=== PATIENT | female | born 1960 | race Two or more races ===

== ENCOUNTER 2025-06-22 19:36 | Emergency (ER) | payer OTHER ==
[~2025-06-22] VITALS: Ht 170.2 cm; Wt 91.0 kg
[2025-06-22 19:39] VITALS: BP 185/75; PULSE 62; RESP 20; TEMP 97.7; O2SAT 98
--- NOTE | 2025-06-22 21:07 | DVH ---
Exam: CT CT AB PEL WO CON-NO ORAL OR IV History: abd bloating/pain Comparison Study: None TECHNIQUE: Multidetector CT of the abdomen was performed from lung bases to pubic symphysis. Imaging was performed without IV contrast. Axial, coronal and sagittal multiplanar reformats were obtained fr om the axial data set by the technologist. Radiation Dose Information: CT Dose: CTDI volume is 15.44 mGy. Dose-length product is 842.51 mGy*cm FINDINGS: Evaluation of solid organs is limited due to lack of intravenous contrast use. Findings: Lung Bases: No acute or significant lung base finding. Normal heart size. No pleural or pericardial effusion. Liver: The liver is normal in size. No focal lesions. Gallbladder and Biliary Tree: Unremarkable Spleen: Unremarkable Pancreas: The pancreas is grossly normal in appearance. Adrenal Glands: Unremarkable Kidneys: Kidneys are grossly normal without calculi or hydronephrosis. A 2 mm calcification near the right ureteral vesicle junction series 2 image 92 - 93 Bladder: 2-3 mm calculus near the right ureterovesical junction noted on axial images and coronal shelley ges series 601 - image 67-68; series 602 image 63-64. Bowel: The stomach is grossly normal in appearance. Small bowel and colon are normal in caliber and d istribution. The appendix is not visualized; however, no secondary findings of acute appendicitis id entified. Ascites: Absent Lymphadenopathy: No mesenteric, retroperitoneal or periportal lymphadenopathy. Abdominal Wall and Mesentery: 2.2 fat containing umbilical hernia Vasculature: The visualized abdominal aorta is normal in size and caliber. Evaluation of abdominal a nd pelvic vessels is limited due to lack of intravenous contrast. Pelvic Organs: Unremarkable Musculoskeletal: No aggressive focal bony lesions, acute fractures or dislocation. Soft tissues: Unremarkable IMPRESSION: 1. 2-3 mm calculus near the right ureterovesical junction. Series 2 image 92 - 93; Coronal images se vern 601 - image 67-68; series 602 image 63-64. Radiation optimization: All CT scans at this facility use at least one of these dose optimization marcella hniques: automated exposure control mA and/or kV adjustment per patient size (includes targeted exam s where dose is matched to clinical indication) or iterative reconstruction.
--- NOTE | 2025-06-22 21:17 | ED.PDOC ---
GI ASSESSMENT HPI Comments 65-year-old female who presents to the ED for chief complaint abdominal pain. -Patient states he has been having abdominal pain for the past 4 days. -Patient states the pain is diffusely located describing the pain as ffullness,, radiating to the back with no associated exacerbating or relieving factors. -Patient states that she went to urgent care today and states she had an x-ray done which showed stool impaction and states she had blood work which showed elevated liver enzymes. -Patient states she has also been constipated but states she had a bowel movement yesterday -Patient with the ED noted to have blood pressure of 185/75 with otherwise stable vitals including heart rate 62 respiratory rate 20 7.7 F and O2 saturation of 98% on room air. Past medical history thyroid disease hyperlipidemia asthma arthritis of the liver disease Past surgical history tonsillectomy nasal polyp of foot surgery Medications unknown Allergies: Ciprofloxacin iodine penicillins Social history: Denies tobacco denies EtOH denies drug use HPI: Poor Historian. Past Medical History: Past Surgical History: REVIEW OF SYSTEMS: CONSTITUTIONAL: Denies acute: fever, diaphoresis, chills, generalized weakness. HEAD: Denies acute: headache, photophobia Eyes: Denies acute: Double vision, vision loss, eye pain, eye discharge. EARS: Denies acute: tinnitus, hearing loss, ear discharge, ear pain, THROAT: Denies acute: sore throat, swelling, difficulty swallowing , pain with swallowing, change in voice. NECK: Denies acute: neck pain, neck swelling, stiff neck. HEART: Denies acute : chest pain, palpitations, LUNGS: Denies acute: SOB, wheezing, cough, hemoptysis ABDOMEN: Denies acute: Nausea, Vomiting, diarrhea, melena , hematemesis, hematochezia SKIN: Denies acute: rash, redness, lesions, itchiness. EXTREMITIES: Denies acute: calf pain, numbness, tingling, weakness, denies pain in extremity. Denies acute: Low back pain. Neuro: Denies acute: focal neurological deficit, motor or sensory focal neurological deficit, tremors, seizure like activity, confusion, dizziness, change in mental status, loss of bowel or bladder function, cauda equina like symptoms. : Denies acute: dysuria, hematuria, flank pain, increase in urinary frequency. PSYCH: Denies acute: hallucination, suicidal ideation, homicidal ideation. FEMALE: Denies acute: abnormal vaginal bleeding, foul odor, unusual discharge. PHYSICAL EXAM: General: ----mild----acute distress, awake and alert. Head: normocephalic, atraumatic. Neck: supple, trachea is midline, no swelling. Throat: Normal phonation. Eyes:, no erythema, no purulent discharge, no proptosis, no icterus. Heart: regular rate, regular rhythm, no significant murmur appreciated. Lungs: no apparent respiratory distress, Able to speak in full sentences. No wheezing, no rhonchi, no crackles. No stridors Clear to auscultation bilaterally. Abdomen: Nonspecific generalized mild tender to palpation, non distended, soft, no guarding, no rebound, + bowel sounds. Neuro: Awake, Alert, oriented to name, self, situation, follows commands GCS=15. Speech is normal. Skin: no petechia, no purpura, no cyanosis, non-pale, not jaundice. Lower extremities: --no - Pitting edema no deformity, no focal swelling, no calf TTP. Makes eye contact. moves all four extremities. Face: no apparent facial droop. Ambulating in the ED independently. ED COURSE: DISCLAIMER: This medical document was created using an electronic medical record system with voice recognition software and computerized dictation system. Although this document has been carefully reviewed, there might still be some phonetic and typographical errors. Occasional wrong-word or "sound-alike" substitutions may have occurred due to the inherent limitations of voice recognition software. These areas are purely typographical due to imperfections of the software programs and do not reflect any compromise in the patient's medical care. Please read the chart carefully and recognize, using context, where these substitutions have occurred. Chief Complaint: Abdominal pain Time Seen by MD: 21:31 Reviewed Notes: Medications, Allergies Allergies: Coded Allergies: Ciprofloxacin (Verified Allergy, Unknown, 06/22/25) Coconut Flavoring Agent (non-screen (Verified Allergy, Unknown, 06/22/25) Iodine (Verified Allergy, Unknown, 06/22/25) Penicillins (Verified Allergy, Unknown, 06/22/25) Home Meds Active Scripts Docusate Sodium (Colace) 100 Mg Cap, 1 CAP PO BID, #30 CAP Prov:JOSE IYER PRESSING MACHINE OPERATOR 06/22/25 Information Source: Patient Mode of Arrival: Ambulatory Was a procedure done? Was a procedure done?: No GI differential Dx Differential Diagnosis: Other (DDX include Diverticulitis, colitis, gastroenteritis, acute abdomen, SBO, enteritis, constipation, volvulus, appendicitis, Gallbladder disease, choledocolithiasis, ascending cholangitis, pancreatitis, intraAbdominal mass/neoplasm, hepatitis, UTI, pylonephritis, kidney stone, aneurysm, dissection, Inflammatory bowel disease, gastroparesis, ischemic bowel, ) X-Ray, Labs, Meds, VS Vital Signs Date Time Temp Pulse Resp B/P (MAP) Pulse Ox O2 Delivery O2 Flow Rate FiO2 06/22/25 19:39 97.7 62 20 185/75 98 97.7 Lab Test 06/22/25 20:58 06/22/25 20:37 Range/Units White Blood Count 5.7 4.4-10.8 10^3/uL Red Blood Count 5.04 4.0-5.20 10^6/uL Hemoglobin 15.8 12.2-16.2 g/dL Hematocrit 46.4 H 36.0-46.0 % Mean Corpuscular Volume 92.1 80.0-100.0 fL Mean Corpuscular Hemoglobin 31.3 28.0-32.0 pg Mean Corpuscular Hemoglobin Concent 33.9 32.0-36.0 g/dL Red Cell Distribution Width 14.0 11.8-14.3 % Platelet Count 219 140-450 10^3/uL Mean Platelet Volume 8.2 6.9-10.8 fL Neutrophils (%) (Auto) 55.5 37.0-80.0 % Lymphocytes (%) (Auto) 32.6 10.0-50.0 % Monocytes (%) (Auto) 6.5 0.0-12.0 % Eosinophils (%) (Auto) 4.6 0.0-7.0 % Basophils (%) (Auto) 0.8 0.0-2.0 % Neutrophils # (Auto) 3.2 1.6-8.6 10 ^3/uL Lymphocytes # (Auto) 1.9 0.4-5.4 10 ^3/uL Monocytes # (Auto) 0.4 0-1.3 10 ^3/uL Eosinophils # (Auto) 0.3 0-0.8 10 ^3/uL Basophils # (Auto) 0 0-0.2 10 ^3/uL Nucleated Red Blood Cells 0.0 % Sodium Level 141 136-145 mmol/L Potassium Level 3.7 3.5-5.1 mmol/L Chloride Level 108 H 98-107 mmol/L Carbon Dioxide Level 20 20-31 mmol/L Anion Gap 13 5-15 Blood Urea Nitrogen 5 L 9-23 mg/dL Creatinine 0.75 0.550-1.02 mg/dL Glomerular Filtration Rate Calc 88 >90 mL/min BUN/Creatinine Ratio 6.7 L 10.0-20.0 Serum Glucose 83 74-106 mg/dL Lactic Acid Level 1.0 0.4-2.0 mmol/L Calcium Level 9.4 8.7-10.4 mg/dL Magnesium Level 2.0 1.6-2.6 mg/dL Total Bilirubin 1.7 H 0.2-1.0 mg/dL Aspartate Amino Transferase (AST) 119 H 13-40 U/L Alanine Aminotransferase (ALT) 288 H 7-40 U/L Alkaline Phosphatase 193 H 46-116 U/L B-Type Natriuretic Peptide 11.75 0-100 pg/mL Total Protein 7.3 5.7-8.2 g/dL Albumin 4.5 3.2-4.8 g/dL Lipase 52 12-53 U/L Urine Color Light-yellow Yellow Urine Clarity Clear Clear Urine pH 5.0 5.0-9.0 Urine Specific [place] 1.006 1.001-1.035 Urine Protein Negative Negative Urine Ketones Negative Negative Urine Blood Negative Negative /uL Urine Nitrite Negative Negative Urine Bilirubin Negative Negative Urine Urobilinogen Normal Negative mg/dL Urine Leukocyte Esterase Negative Negative /uL Urine RBC <1 0 - 4 /hpf Urine Microscopic WBC < 1 0-5 /HPF Urine Squamous Epithelial Cells None seen <5 /hpf Urine Bacteria None seen None Seen /hpf Urine Glucose Normal Normal mg/dL [facility] [id number] [facility] [address] Ph: [phone] DIAGNOSTIC IMAGING Diagnostic Imaging Report : [id number] Signed PATIENT: DONALD WEINER ACCT: [id number] UNIT: [id number] : 1960 LOC: ER ROOM / BED: / AGE / SEX: 65 / F ADM STATUS: REG ER SERVICE 14 ORDERING PHYSICIAN: DEEPTI TOLLIVER DO PROCEDURE(s): ABPL - CT AB PEL WO CON-NO ORAL OR IV REASON: abd bloating/pain ORDER NUMBER(s): [id number], ACCESSION NUMBER(s): [id number] Exam: CT CT AB PEL WO CON-NO ORAL OR IV History: abd bloating/pain Comparison Study: None TECHNIQUE: Multidetector CT of the abdomen was performed from lung bases to pubic symphysis. Imaging was performed without IV contrast. Axial, coronal and sagittal multiplanar reformats were obtained from the axial data set by the technologist. Radiation Dose Information: CT Dose: CTDI volume is 15.44 mGy. Dose-length product is 842.51 mGy*cm FINDINGS: Evaluation of solid organs is limited due to lack of intravenous contrast use. Findings: Lung Bases: No acute or significant lung base finding. Normal heart size. No pleural or pericardial effusion. Liver: The liver is normal in size. No focal lesions. Gallbladder and Biliary Tree: Unremarkable Spleen: Unremarkable Pancreas: The pancreas is grossly normal in appearance. Adrenal Glands: Unremarkable Kidneys: Kidneys are grossly normal without calculi or hydronephrosis. A 2 mm calcification near the right ureteral vesicle junction series 2 image 92 - 93 Bladder: 2-3 mm calculus near the right ureterovesical junction noted on axial images and coronal images series 601 - image 67-68; series 602 image 63-64. Bowel: The stomach is grossly normal in appearance. Small bowel and colon are normal in caliber and distribution. The appendix is not visualized; however, no secondary findings of acute appendicitis identified. Ascites: Absent Lymphadenopathy: No mesenteric, retroperitoneal or periportal lymphadenopathy. Abdominal Wall and Mesentery: 2.2 fat containing umbilical hernia Vasculature: The visualized abdominal aorta is normal in size and caliber. Evaluation of abdominal and pelvic vessels is limited due to lack of intravenous contrast. Pelvic Organs: Unremarkable Musculoskeletal: No aggressive focal bony lesions, acute fractures or dislocation. Soft tissues: Unremarkable IMPRESSION: 1. 2-3 mm calculus near the right ureterovesical junction. Series 2 image 92 - 93; Coronal images series 601 - image 67-68; series 602 image 63-64. Radiation optimization: All CT scans at this facility use at least one of these dose optimization techniques: automated exposure control mA and/or kV adjustmen t per patient size (includes targeted exams where dose is matched to clinical indication) or iterative reconstruction. ATED BY: MALIK WHITE Jr., DO DICTATED DATE/TIME: 06/22/252104 SIGNED BY: MALIK WHITE Jr., SIGNED DATE/TIME: 06/22/252104 CC: Time of 1ST Reevaluation: 00:00 (The case was discussed with the admitting team (HPI, physical exam, labs and diagnostic tests that were available at the time of disposition, ED course, treatment plan) on the phone. They agreed to evaluate the patient and make the appropriate disposition. They will assume care of this patient from this point forward. MARIA FERNANDA Ramon. ) Reevaluation 1ST: Unchanged Patient Education/Counseling: Diagnosis, Treatment Family Education/Counseling: No Family Present Comments MDM: patient presented with the above HPI.---abdominal pain---workup was initiated. patient was found with the above mentioned diagnosis. the following medications were ordered: please refer to order lists of meds and tests obtained by myself Dr. Tolliver. Patient ED course and VS have been stabilized. Patient has been reassessed in the ED and remained in a stable condition. Pertinent incidental findings were discussed with the patient and/or family. Patient/family voices understanding and is agreeable with plan. Patient has been observed in the ED adequate length of time to insure improvement/stability. Escalation of care considered: Consideration of escalation to observation or admission Patient was ADMITTED to the medicine team for further evaluation and treatment of their presentation. The medicine team evaluated the patient and I believe they are going to discharge the patient from the ER. Please see their consultation notes. All the reports of any imaging studies that were ordered by myself were reviewed by myself. SEPSIS Sepsis Screen Date sepsis recognized/suspect: Jun 22, 2025 Time Sepsis recognized/suspect: 1943 Recent Procedure: No On Antibiotic Therapy: No Respiratory Rate >20: No Heart Rate >90: No Temp<36 C (96.8 F) or >38.3 C: No SBP <90 or MAP <65 mmHG: No New Acute Mental Status Change: No Is the patient on CPAP, BIPAP,: No Physician Orders Ct Ab Pel Wo Con-No Oral Or Iv (06/22/25 20:15) Discharge (06/22/25 23:34) Vital Signs Date Time Temp Pulse Resp B/P (MAP) Pulse Ox O2 Delivery O2 Flow Rate FiO2 06/22/25 19:39 97.7 62 20 185/75 98 97.7 Laboratory Tests Test 06/22/25 20:58 Lactic Acid Level 1.0 mmol/L (0.4-2.0) White Blood Count 5.7 10^3/uL (4.4-10.8) Departure 1 Departure Time of Disposition: 21:33 Impression: Primary Impression: Kidney stone Additional Impressions: Abdominal pain Elevated LFTs Disposition: ADMITTED INPATIENT Admit to: Tele Condition: Guarded e-Prescriptions Docusate Sodium (Colace) 100 Mg Cap 1 CAP PO BID, #30 CAP Prov: JOSE IYER PRESSING MACHINE OPERATOR 06/22/25 Discharged With: Self Critical Care Note Critical Care Time?: No I personally scribed for DEEPTI TOLLIVER DO ([email or web address]) on 06/22/25 at 21:17. Electronically submitted by Corey Drake ([facility] I personally scribed for DEEPTI TOLLIVER DO ([email or web address]) on 06/22/25 at 21:31. Electronically submitted by Corey Drake ([facility] DEEPTI TOLLIVER DO Jun 22, 2025 21:17
[2025-06-22 21:25] LABS: Hematocrit 46.4 % (36.0-46.0); Hemoglobin 15.8 g/dL (12.2-16.2); Mean Corpuscular Hemoglobin 31.3 pg (28.0-32.0); Mean Corpuscular Volume 92.1 fL (80.0-100.0); Nucleated Red Blood Cells % 0.0 %
[2025-06-22 21:37] LABS: Albumin 4.5 g/dL (3.2-4.8); Anion Gap 13 (5-15); BUN/Creatinine Ratio 6.7 (10.0-20.0); Calcium 9.4 mg/dL (8.7-10.4); Glucose 83 mg/dL (74-106); Magnesium 2.0 mg/dL (1.6-2.6); Potassium 3.7 mmol/L (3.5-5.1); Sodium 141 mmol/L (136-145); Total Protein 7.3 g/dL (5.7-8.2)
[2025-06-22 21:41] LABS: Alanine Aminotransferase 288 U/L (7-40); Alkaline Phosphatase 193 U/L (46-116); Bilirubin, Total 1.7 mg/dL (0.2-1.0); Blood Urea Nitrogen 5 mg/dL (9-23); Carbon Dioxide 20 mmol/L (20-31); Chloride 108 mmol/L (98-107)
[2025-06-22 21:46] LABS: Urine Protein, UAD Negative (Negative)
--- NOTE | 2025-06-22 23:25 | DVHINCON2 ---
Date of service: Jun 22, [address] De Jesus Reason for Consultation Medical management History of Present Illness 65-year-old female with past medical history of thyroid disorder, stated IBS initially presented to [facility] urgent care with complaints of abdominal pain and bloating. During the initial workup at [facility] urgent care patient was found to have abnormal LFTs. Patient was then sent to the emergency department for further evaluation and CT imaging. During the emergency department evaluation CBC is unremarkable. BMP is unremarkable. AST 119, ALT 288, alk phos 193, total bilirubin 1.7. CT of the abdomen pelvis was completed with impression reading liver normal in size, no focal lesions. Gallbladder and biliary tree are unremarkable. Kidneys are grossly normal without calculus or hydronephrosis. Bladder presented 2-3 mm calculus near the ureterovesical junction. Small bowel and colon are normal in caliber and distribution. Patient endorses she is able to void normally and without pain. At this time patient states last bowel movement was small the previous day. Endorses tenderness along the left side of her abdomen. There are no complaints of fevers, chills, dizziness, shortness of breath, chest pain, nausea, vomiting, urinary retention, dysuria, hematemesis, hematochezia. Allergies: Coded Allergies: Ciprofloxacin (Verified Allergy, Unknown, 06/22/25) Coconut Flavoring Agent (non-screen (Verified Allergy, Unknown, 06/22/25) Iodine (Verified Allergy, Unknown, 06/22/25) Penicillins (Verified Allergy, Unknown, 06/22/25) Home Meds Active Scripts Docusate Sodium (Colace) 100 Mg Cap, 1 CAP PO BID, #30 CAP Prov:JOSE IYER NP 06/22/25 Review of Systems Ten systems reviewed and negative except as per HPI Vital Signs Vital Signs Date Time Temp Pulse Resp B/P (MAP) Pulse Ox O2 Delivery O2 Flow Rate FiO2 06/22/25 19:39 97.7 62 20 185/75 98 97.7 Physical Exam GENERAL: Patient appearing stated age, in no acute distress. HEENT: Pupils equal and reactive to light and accommodation. Extraocular muscles intact. Mucous membranes moist. Conjunctivae pink. Anicteric sclerae. LUNGS: Bilateral air entry. No wheezes, rhonchi or rales. HEART: Regular rate and rhythm. Normal S1 and S2. ABDOMEN: BS normoactive, soft, and nondistended. No CVA tenderness. Mild tenderness to palpation left lower quadrant. EXTREMITIES: No clubbing, cyanosis, edema. No calf tenderness. Pedal pulses 2+. NEUROLOGICAL: The patient is alert and oriented times 3. CN II-XII intact. No focal deficits on gross sensory or motor examination. Labs/Diagnostic Data Labs Test 06/22/25 20:58 06/22/25 20:37 Range/Units White Blood Count 5.7 4.4-10.8 10^3/uL Red Blood Count 5.04 4.0-5.20 10^6/uL Hemoglobin 15.8 12.2-16.2 g/dL Hematocrit 46.4 H 36.0-46.0 % Mean Corpuscular Volume 92.1 80.0-100.0 fL Mean Corpuscular Hemoglobin 31.3 28.0-32.0 pg Mean Corpuscular Hemoglobin Concent 33.9 32.0-36.0 g/dL Red Cell Distribution Width 14.0 11.8-14.3 % Platelet Count 219 140-450 10^3/uL Mean Platelet Volume 8.2 6.9-10.8 fL Neutrophils (%) (Auto) 55.5 37.0-80.0 % Lymphocytes (%) (Auto) 32.6 10.0-50.0 % Monocytes (%) (Auto) 6.5 0.0-12.0 % Eosinophils (%) (Auto) 4.6 0.0-7.0 % Basophils (%) (Auto) 0.8 0.0-2.0 % Neutrophils # (Auto) 3.2 1.6-8.6 10 ^3/uL Lymphocytes # (Auto) 1.9 0.4-5.4 10 ^3/uL Monocytes # (Auto) 0.4 0-1.3 10 ^3/uL Eosinophils # (Auto) 0.3 0-0.8 10 ^3/uL Basophils # (Auto) 0 0-0.2 10 ^3/uL Nucleated Red Blood Cells 0.0 % Sodium Level 141 136-145 mmol/L Potassium Level 3.7 3.5-5.1 mmol/L Chloride Level 108 H 98-107 mmol/L Carbon Dioxide Level 20 20-31 mmol/L Anion Gap 13 5-15 Blood Urea Nitrogen 5 L 9-23 mg/dL Creatinine 0.75 0.550-1.02 mg/dL Glomerular Filtration Rate Calc 88 >90 mL/min BUN/Creatinine Ratio 6.7 L 10.0-20.0 Serum Glucose 83 74-106 mg/dL Lactic Acid Level 1.0 0.4-2.0 mmol/L Calcium Level 9.4 8.7-10.4 mg/dL Magnesium Level 2.0 1.6-2.6 mg/dL Total Bilirubin 1.7 H 0.2-1.0 mg/dL Aspartate Amino Transferase (AST) 119 H 13-40 U/L Alanine Aminotransferase (ALT) 288 H 7-40 U/L Alkaline Phosphatase 193 H 46-116 U/L B-Type Natriuretic Peptide 11.75 0-100 pg/mL Total Protein 7.3 5.7-8.2 g/dL Albumin 4.5 3.2-4.8 g/dL Urine Color Light-yellow Yellow Urine Clarity Clear Clear Urine pH 5.0 5.0-9.0 Urine Specific [place] 1.006 1.001-1.035 Urine Protein Negative Negative Urine Ketones Negative Negative Urine Blood Negative Negative /uL Urine Nitrite Negative Negative Urine Bilirubin Negative Negative Urine Urobilinogen Normal Negative mg/dL Urine Leukocyte Esterase Negative Negative /uL Urine RBC <1 0 - 4 /hpf Urine Microscopic WBC < 1 0-5 /HPF Urine Squamous Epithelial Cells None seen <5 /hpf Urine Bacteria None seen None Seen /hpf Urine Glucose Normal Normal mg/dL Assessment -Abnormal LFTs -Abdominal pain -Non-obstructive kidney stones -Constipation The patient's case was reviewed in its entirety, including lab work, imaging, physical assessment. During the emergency department evaluation, initial lab work presents W 5.7, H&H 15.8/46.4, PLT 219. Na 141, K3.7, BUN 5, creatinine 0.75, GFR 88. . AST 119, ALT 288, alk phos 193, total bilirubin 1.7. UA negative. CT of the abdomen and pelvis. Was interpreted per the radiologist and reviewed by myself. Impression reads liver is normal in size. No focal lesions. Gallbladder and biliary tree unremarkable. Kidneys are grossly normal without calculi or hydronephrosis. There are 23 mm calculus near the right ureterovesicle junction in the bladder. Small bowel and colon are normal in caliber and distribution. On arrival to the emergency department patient is noted to be hypertensive as documented in EHR without complaints of dizziness, headaches, chest pain. Patient is non-toxic appearing without complaints of nausea vomiting. Able to ambulate independently with steady gait. Plan/Recommendation Given there are no acute abnormalities on the CT of the abdomen and pelvis, patient can be discharged home with plan for close outpatient follow up. O rn case management Ester has been consulted to establish home safety evaluation. Patient is to be set up with outpatient follow up with Gastroenterology for evaluation of abnormal LFTs. Will also set up outpatient follow up with urology. At this time, plan of care was discussed with the patient in detail, who is in agreement and prefers to be discharged home. Patient was also counseled on increasing her water intake, and to include fiber such as fruit, vegetable, salads in her diet to improve constipation. She was also encouraged to be more active and walk. Patient was provided with strict ER precaution, including, but not limited to dizziness, syncope, shortness of breath, chest pain, nausea, vomiting, blood in emesis, blood in stool. If any of these were to occur, return to the nearest emergency department for further evaluation and treatment. Plan discussed with: Patient JOSE IYER NP Jun 22, 2025 23:25
[2025-06-22] MEDS ORDERED: DOCU-94 PO (23:28)
[2025-06-22] MEDS: DOCUSATE SOD 100 MG CAP PO ONE (23:47)
[2025-06-22] MEDS: TAMSULOSIN HYDROCHLORIDE 0.4 MG CAP PO ONE (23:47)
== END 2025-06-22 23:30 | disposition home or self-care (01) ==
LOC: ER 19:36
DX: N20.2 Calculus of kidney with calculus of ureter (principal); R10.9 Unspecified abdominal pain; R74.01 Elevation of levels of liver transaminase levels; Z88.1 Allergy status to other antibiotic agents; Z88.0 Allergy status to penicillin; Z79.899 Other long term (current) drug therapy
CPT/HCPCS: 36415; 74176; 80053; 81001; 83605; 83690; 83735; 83880; 85025

== ENCOUNTER 2025-08-31 20:03 | Emergency (ER) | payer OTHER ==
[~2025-08-31] VITALS: Ht 170.2 cm; Wt 93.0 kg
[~2025-08-31 20:03] MED LIST: DOCU-94 PO
--- NOTE | 2025-08-31 22:47 | ED.PDOC ---
History of Present Illness(SKN HPI Comments This is a 65 year-old female who presents to the ED with a chief complaint of feral cat bite to the L ankle yesterday. Patient states she is not UTD with tetanus shots. Patient presents with minimal swelling and redness to the L ankle, no drainage or bleeding identified at this time. Patient has no further complaints at this time and denies any weakness, fatigue, fever, chills, dizziness, or N/V/D. Chief Complaint: Animal Bite Time Seen by MD: 22:43 History of Present Illness: Medications, Allergies Allergies: Coded Allergies: Capsaicin (Verified Allergy, Unknown, 08/31/25) Cayenne (Verified Allergy, Unknown, 08/31/25) Ciprofloxacin (Verified Allergy, Unknown, 06/22/25) Coconut Flavoring Agent (non-screen (Verified Allergy, Unknown, 06/22/25) Iodine (Verified Allergy, Unknown, 06/22/25) Penicillins (Verified Allergy, Unknown, 06/22/25) Home Meds Active Scripts Mupirocin Calcium (Topical) (MUPIROCIN) 2 % Cre, 2 % EX TID for 7 Days, #60 GRAMS Prov:CHRIS GRAF 08/31/25 Doxycycline Monohydrate (Doxycycline Monohydrate) 100 Mg Cap, 1 CAP PO BID for 7 Days, #14 CAP Prov:CHRIS GRAF 08/31/25 Docusate Sodium (Colace) 100 Mg Cap, 1 CAP PO BID, #30 CAP Prov:JOSE IYER NP 06/22/25 Information Source: Patient Mode of Arrival: Ambulatory Timing: Hours Duration: Since onset Location: Other (L Ankle ) Mechanism: Cat Occurence: Outdoors Tetanus: Unknown Associated Signs and Symptoms: Redness, Swelling Past Medical History PAST MEDICAL HISTORY: Arthritis, Asthma Past Medical History (Other): Hypothyroid Surgical History: Tonsillectomy Surgical History (Other): L Foot, Polyp removal Family History Family History: No family hx of DM, No family hx of HTN Social History Smoker: Quit Greater Than 1 Year Alcohol: Occasionally Lives In: Home Constitutional: denies: chills, diaphoresis, fatigue, fever, malaise, sweats, weakness, others EENTM: denies: blurred vision, double vision, ear bleeding, ear discharge, ear drainage, ear pain, ear ringing, eye pain, eye redness, hearing loss, mouth pain, mouth swelling, nasal discharge, nose bleeding, nose congestion, nose pain, photophobia, tearing, throat pain, throat swelling, voice changes, others Respiratory: denies: cough, hemoptysis, orthopnea, SOB at rest, shortness of breath, SOB with excertion, stridor, wheezing, others Cardiovascular: denies: chest pain, dizzy spells, diaphoresis, Dyspnea on exertion, edema, irregular heart beat, left arm pain, lightheadedness, palpitations, PND, syncope, others Gastrointestinal: denies: abdomen distended, abdominal pain, blood streaked bowels, constipated, diarrhea, dysphagia, difficulty swallowing, hematemesis, melena, nausea, poor appetite, poor fluid intake, rectal bleeding, rectal pain, vomiting, others Genitourinary: denies: abnormal vagina bleeding, burning, dyspareunia, dysuria, flank pain, frequency, hematuria, incontinence, pain, , vagina disc harge, urgency, others Neurological: denies: dizziness, fainting, headache, left sided numbness, left sided weakness, numbness, paresthesia, pre-existing deficit, right sided numbness, right sided weakness, seizure, speech problems, tingling, tremors, weakness, others Musculoskeletal: denies: back pain, gout, joint pain, joint swelling, muscle pain, muscle stiffness, neck pain, others Integumetry: reports: wounds (puncture wound to L ankle via cat bite ); denies: bruises, change in color, change in hair/nails, dryness, laceration, lesions, lumps, rash, others Allergic/Immunocompromised: denies: Difficulty Healing, Frequent Infections, Hives, Itching, others Hematologic/Lymphatic: denies: anemia, blood clots, easy bleeding, easy bruising, swollen glands, others Endocrine: denies: excessive hunger, excessive sweating, excessive thirst, excessive urination, flushing, intolerance to cold, intolerance to heat, unexplained weight gain, unexplained weight loss, others Psychiatric: denies: anxiety, bipolar disorder, depression, hopeless, panic disorder, schizophrenia, sleepless, suicidal, others All Other Systems: Reviewed and Negative Physical Exam General Appearance: No Apparent Distress, Normal HEENT: Normal ENT Inspection, Pharynx Normal, TMs Normal Neck: Normal, Normal Inspection Respiratory: Lungs Clear, No Respiratory Distress, Normal Breath Sounds Cardiovascular: Regular Rate/Rhythm Breast Exam: Deferred Gastrointestinal: NOT DONE Genitalia: Deferred Pelvic: Deferred Rectal: Deferred Extremities: No calf tenderness, Normal capillary refill, Normal inspection, Normal range of motion, Non-tender, No pedal edema Musculoskeletal : Apperance: Normal Neurologic: Alert, Normal Affect, Normal Mood Cerebellar Function: Normal Reflexes: Normal Skin: Dry, Normal Color, Warm, Wounds (minimal swelling and redness at the puncture wound site ) Lymphatic: NOT DONE Was a procedure done? Was a procedure done?: No Differential Diagnosis (INTG) Differential Diagnosis: Abrasion, Cellulitis, Puncture Wound X-Ray, Labs, Meds, VS Vital Signs Date Time Temp Pulse Resp B/P (MAP) Pulse Ox O2 Delivery O2 Flow Rate FiO2 08/31/25 23:08 97.3 67 18 134/78 (96) 97 97.3 08/31/25 20:15 98.1 83 20 142/80 94 98.1 Current Medications Medications (Trade) Dose Ordered Sig/Gracia Route Start Time Stop Time Status Last Admin Doxycycline Monohydrate (Vibramycin Tablet) 100 mg ONCE ONCE PO 08/31/25 23:00 08/31/25 23:01 DC 08/31/25 23:00 Diphtheria/ Tetanus/Acell Pertussis (Boostrix T-Dap) 0.5 ml ONCE ONCE IM 08/31/25 23:00 08/31/25 23:01 DC 08/31/25 23:00 Time of 1ST Reevaluation: 23:03 Reevaluation 1ST: Unchanged Patient Education/Counseling: Diagnosis, Treatment Family Education/Counseling: No Family Present SEPSIS Sepsis Screen Date sepsis recognized/suspect: Aug 31, 2025 Time Sepsis recognized/suspect: 2018 Recent Procedure: No On Antibiotic Therapy: No Respiratory Rate >20: No Heart Rate >90: No Temp<36 C (96.8 F) or >38.3 C: No SBP <90 or MAP <65 mmHG: No New Acute Mental Status Change: No Is the patient on CPAP, BIPAP,: No Vital Signs Date Time Temp Pulse Resp B/P (MAP) Pulse Ox O2 Delivery O2 Flow Rate FiO2 08/31/25 23:08 97.3 67 18 134/78 (96) 97 97.3 08/31/25 20:15 98.1 83 20 142/80 94 98.1 Medications Medications Dose Ordered Sig/Gracia Route Start Time Stop Time Status Last Admin Dose Admin Diphtheria/ Tetanus/Acell Pertussis 0.5 ml ONCE ONCE IM 08/31/25 23:00 08/31/25 23:01 DC 08/31/25 23:00 Doxycycline Monohydrate 100 mg ONCE ONCE PO 08/31/25 23:00 08/31/25 23:01 DC 08/31/25 23:00 Departure 1 Departure Time of Disposition: 23:09 Impression: Primary Impression: Cat bite of left ankle Additional Impression: Puncture wound of left ankle without foreign body Disposition: HOME / SELF CARE / HOMELESS Condition: Stable e-Prescriptions Mupirocin Calcium (Topical) (MUPIROCIN) 2 % Cre 2 % EX TID for 7 Days, #60 GRAMS Prov: CHRIS GRAF 08/31/25 Doxycycline Monohydrate (Doxycycline Monohydrate) 100 Mg Cap 1 CAP PO BID for 7 Days, #14 CAP Prov: CHRIS GRAF 08/31/25 Discharged With: Self Critical Care Note Critical Care Time?: No Stability Stability form required: No Heart Score Heart Score: Heart Score Response (Comments) Value History N/A 0 EKG N/A 0 Age N/A 0 Risk Factors N/A 0 Troponin N/A 0 Total 0 I personally scribed for ER ([email or web address]) on 08/31/25 at 22:47. Electronically submitted by Savannah Gorman ([place]). I personally scribed for ER ([email or web address]) on 08/31/25 at 22:50. Electronically submitted by Savannah Gorman ([place]). I personally scribed for ER ([email or web address]) on 08/31/25 at 22:59. Electronically submitted by Savannah Gorman ([place]). I personally scribed for ER ([email or web address]) on 08/31/25 at 23:02. Electronically submitted by Savannah Gorman ([place]). ER Aug 31, 2025 22:47 CHRIS GRAF Sep 01, 2025 02:25
[2025-08-31] MEDS ORDERED: MUPI2CRE17 EX (22:59)
[2025-08-31] MEDS ORDERED: DOXY1CAP57 PO (22:59)
[2025-08-31] MEDS: TETANUS-DIPTH-ACEL PERTUSSIS 0.5ML SYR Tdap IM ONE (23:00)
[2025-08-31] MEDS: DOXYCYCLINE 100 MG TAB/CAP PO ONE (23:00)
[2025-08-31 23:08] VITALS: BP 134/78; PULSE 67; RESP 18; TEMP 97.3; O2SAT 97
== END 2025-08-31 23:18 | disposition home or self-care (01) ==
LOC: ER 20:03
DX: S91.032A Puncture wound without foreign body, left ankle, initial encounter (principal); E03.9 Hypothyroidism, unspecified; J45.909 Unspecified asthma, uncomplicated; M19.90 Unspecified osteoarthritis, unspecified site; Z88.0 Allergy status to penicillin; Z88.1 Allergy status to other antibiotic agents; Z88.8 Allergy status to other drugs, medicaments and biological substances; Z90.89 Acquired absence of other organs; Z91.018 Allergy to other foods; W55.01XA Bitten by cat, initial encounter; Y93.89 Activity, other specified; Y92.89 Other specified places as the place of occurrence of the external cause; Y99.8 Other external cause status
CPT/HCPCS: 90471; 90715